=== PATIENT | female | born 1965 | race American Indian/Alaskan Native ===

== ENCOUNTER 2017-09-06 09:57 | Outpatient (CLI) | payer BC ==
--- NOTE | 2017-09-06 11:18 | Mammography Report ---
BILATERAL MAMMOGRAM with CAD: HISTORY: Cancer screening. FINDINGS: The breast tissue is heterogeneously dense, which could obscure detection of small masses (approximately 50%-75% glandular). No mass, distortion, suspicious calcification, or skin change is seen. IMPRESSION: Negative mammogram. There is no mammographic evidence of malignancy. RECOMMENDATION: Follow-up per ACS guidelines. BI-RADS CATEGORY: 1 = Negative ACR BI-RADS MAMMOGRAPHIC CODES: 0 = Needs additional imaging evaluation; 1 = Negative; 2 = Benign; 3 = Probably benign; 4 = Suspicious; 5 = Malignant; 6 = Known biopsy-proven malignancy COMMENT: 1. Dense breast tissue, i.e., adenosis, fibrocystic changes, etc., may obscure an underlying neoplasm. 2. Approximately 10% of cancers are not detected with mammography. 3. A negative mammography report should not delay biopsy if a clinically suspicious mass is present. COMMENT: Patient follow-up letters are generated in [employer].
== END 2017-09-06 09:58 | disposition home or self-care (01) ==
LOC: MAMMO 09:57
PROVIDERS: ATTEND Family Medicine
DX: Z12.31 Encounter for screening mammogram for malignant neoplasm of breast (principal)
CPT/HCPCS: 77067; G0202

== ENCOUNTER 2019-09-08 07:25 | Outpatient (CLI) | payer BC ==
--- NOTE | 2019-09-11 13:10 | Mammography Report ---
DIGITAL SCREENING MAMMOGRAM WITH CAD, 09/08/2019 INDICATION: Routine screening mammography. TECHNIQUE: Digital bilateral 2D mammography was obtained in the craniocaudal and mediolateral obliq ue projections. This examination was interpreted with the benefit of Computer-Aided Detection analysi s. COMPARISON: 09/05/2018 and 09/06/2017 FINDINGS: Breast Density: The breasts are heterogeneously dense, which may obscure small masses. There is no evidence of dominant mass, suspicious calcifications or architectural distortion in eithe r breast. IMPRESSION: No mammographic evidence of malignancy. Follow up recommendation: Routine yearly BI-RADS Category 1: Negative. A "normal" or negative report should not discourage follow up or biopsy of a clinically significant f inding. A written summary of these findings will be mailed to the patient. The patient will be entered into a mammography reporting system which will generate a reminder letter for the patient's next appointmen t at the appropriate interval. The [employer] recommends yearly mammograms starting at age 40 and continuing as l radha as a woman is in good health. Breast MRI is recommended for women with an approximate 20-25% or greater lifetime risk of breast cancer, including women with a strong family history of breast or ova [place] cancer or who have been treated for Hodgkin's disease. Signer Name: Golden Rodriguez MD Signed: 09/11/2019 1:06 PM Workstation Name: [id number]
== END 2019-09-08 07:26 | disposition home or self-care (01) ==
LOC: MAMMO 07:25
PROVIDERS: ATTEND Family Medicine
DX: Z12.31 Encounter for screening mammogram for malignant neoplasm of breast (principal)
CPT/HCPCS: 77067

== ENCOUNTER 2021-08-15 12:47 | Outpatient (CLI) | payer BC ==
--- NOTE | 2021-08-16 10:50 | Mammography Report ---
DIGITAL SCREENING MAMMOGRAM WITH CAD, 08/15/2021 CLINICAL INFORMATION / INDICATION: Routine screening mammography. SCREENING MAMMOGRAM TECHNIQUE: Digital bilateral 2D mammography was obtained in the craniocaudal and mediolateral obliqu e projections. This examination was interpreted with the benefit of Computer-Aided Detection analysis . COMPARISON: 09/08/2019. FINDINGS: Breast Density: The breasts are heterogeneously dense, which may obscure small masses. No dominant mass, suspicious calcifications, or architectural distortion in the left breast. New nodule just posterior and lateral to the nipple measuring approximately 8 mm. Ultrasound with pos sible spot compression views is recommended. IMPRESSION: New right breast nodule. Follow up recommendation: Ultrasound BI-RADS Category 0: Incomplete. Needs additional imaging evaluation and/or prior mammograms for amanda long. A "normal" or negative report should not discourage follow up or biopsy of a clinically significant f inding. A written summary of these findings will be mailed to the patient. The patient will be entered into a mammography reporting system which will generate a reminder letter for the patient's next appointmen t at the appropriate interval. The [employer] recommends yearly mammograms starting at age 40 and continuing as l radha as a woman is in good health. Breast MRI is recommended for women with an approximate 20-25% or greater lifetime risk of breast cancer, including women with a strong family history of breast or ova ir[place] cancer or who have been treated for Hodgkin's disease. Signer Name: Kenneth Senior MD Signed: 08/16/2021 10:46 AM Workstation Name: [facility]
== END 2021-08-15 12:48 | disposition home or self-care (01) ==
LOC: MAMMO 12:47
PROVIDERS: ATTEND Family Medicine
DX: Z12.31 Encounter for screening mammogram for malignant neoplasm of breast (principal)
CPT/HCPCS: 77067